=== PATIENT | female | born 1985 | race Hispanic/Latino ===

== ENCOUNTER 2021-11-05 13:00 | Inpatient (IN) | payer MEDICAID ==
[~2021-11-05] VITALS: Ht 157.5 cm; Wt 98.4 kg
[2021-11-05] MEDS: LACTATED RINGERS 1000ML 1,000 ML IV PRN ×3 (13:36→16:14)
[2021-11-05 14:12] LABS: APPEARANCE,URINE Clear (CLEAR); BILIRUBIN,URINE Negative (NEGATIVE); COLOR,URINE Yellow (YELLOW); GLUCOSE, URINE (UA) Negative (NEGATIVE); KETONES,URINE Trace mg/dL (NEGATIVE); LEUKOCYTE ESTERASE ,URINE Negative (NEGATIVE); NITRATE,URINE Negative (NEGATIVE); OCCULT BLOOD,URINE Negative (NEGATIVE); PROTEIN,URINE POS 1+ mg/dL (NEGATIVE)
[2021-11-05 14:23] LABS: BACTERIA,URINE Few /HPF (None Seen); MUCUS,URINE Few LPF (None Seen); RBC,URINE 0-1 /HPF (0-1); SQUAMOUS EPITHELIAL CELL,UR Few /HPF (0-2); WBC,URINE 0-1 /HPF (0-1)
[2021-11-05 14:52] LABS: HEMATOCRIT 33.5 % (36-48); MEAN CORPUSCULAR HEMOGLOBIN 25.7 pg (27.0-33.0); MEAN CORPUSCULAR HGB CONC 31.6 g/dL (32.0-36.0); MEAN CORPUSCULAR VOLUME 81.3 fL (79-99); RED BLOOD CELL COUNT(AUTO) 4.12 MIL/uL (4.00-5.50); WHITE BLOOD COUNT (AUTO) 9.8 K/uL (4.8-10.8)
[2021-11-05] MEDS ORDERED: NALOXONE HCL 0.4 MG/1 ML ML IV PRN (15:00)
[2021-11-05] MEDS ORDERED: LACTATED RINGERS 500 ML 500 ML IV PRN (15:00)
[2021-11-05] MEDS ORDERED: EPHEDRINE SULFATE 50 MG/ML AMPULE IVP PRN (15:00)
[2021-11-05] MEDS ORDERED: MEPERIDINE-PF 50 MG/ML SYG IVP PRN (15:00)
[2021-11-05] MEDS ORDERED: PROMETHAZINE HCL 25 MG/ML 1ML AMPULE IM PRN (15:00)
[2021-11-05] MEDS ORDERED: DINOPROSTONE 10 MG VAGINAL SUPP VG SCH (20:00)
[2021-11-06] MEDS: LACTATED RINGERS 1000ML 1,000 ML IV PRN ×2 (02:10→10:00)
[2021-11-06] MEDS ORDERED: OXYTOCIN-LR 20 UNITS/1000 ML 1,000 ML IV SCH ×3 (05:00→13:00)
[2021-11-06] MEDS ORDERED: ROPIVACAINE 0.2% 100ML VIAL 100 ML EP SCH (07:30)
[2021-11-06] MEDS ORDERED: LACTATED RINGERS 500 ML 500 ML IV PRN (07:30)
[2021-11-06] MEDS ORDERED: NALOXONE HCL 0.4 MG/1 ML ML IV PRN (07:30)
[2021-11-06] MEDS ORDERED: EPHEDRINE SULFATE 50 MG/ML AMPULE IVP PRN (07:30)
[2021-11-06 08:36] LABS: RAPID PLASMA REAGIN NONREACTIVE (NONREACTIVE)
[2021-11-06] MEDS ORDERED: METHYLERGONOVINE MALEATE 0.2 MG/1 ML ML ONE (12:01)
[2021-11-06] MEDS ORDERED: WITCH HAZEL 1 PAD TP PRN (13:00)
[2021-11-06] MEDS ORDERED: ACETAMINOPHEN WITH CODEINE 1 TAB TAB PO PRN (13:00)
[2021-11-06] MEDS ORDERED: BENZOCAINE/LANOLIN/ALOE VERA 60 ML AEROSOL TP PRN (13:00)
[2021-11-06] MEDS ORDERED: MEASLES/MUMPS/RUBELLA VACCINE, LIVE 0.5 ML/VIAL SQ PRN (13:00)
[2021-11-06] MEDS ORDERED: LANOLIN 30GM OINTMENT TP PRN (13:00)
[2021-11-06] MEDS ORDERED: ACETAMINOPHEN 325 MG TAB PO PRN (13:00)
[2021-11-06] MEDS ORDERED: DIPH,PERTUSS(ACELL),TET VAC/PF 0.5 ML VIAL IM PRN (13:00)
[2021-11-06 15:29] VITALS: BP 128/55
[2021-11-06] MEDS: IBUPROFEN 600 MG TABLET PO PRN ×2 (15:57→22:23)
[2021-11-06] MEDS ORDERED: PNV1TABL17 PO (17:12)
[2021-11-06 19:50] VITALS: BP 127/59
[2021-11-06] MEDS: DOCUSATE SODIUM 100 MG CAP PO SCH (20:28)
[2021-11-06 23:23] VITALS: BP 115/64
[2021-11-07 03:12] VITALS: BP 107/65
[2021-11-07 06:16] LABS: HEMATOCRIT 27.6 % (36-48); MEAN CORPUSCULAR HEMOGLOBIN 25.7 pg (27.0-33.0); MEAN CORPUSCULAR HGB CONC 31.5 g/dL (32.0-36.0); MEAN CORPUSCULAR VOLUME 81.4 fL (79-99); RED BLOOD CELL COUNT(AUTO) 3.39 MIL/uL (4.00-5.50); RED CELL DISTRIBUTION WIDTH 14.2 % (11.0-15.5); WHITE BLOOD COUNT (AUTO) 9.3 K/uL (4.8-10.8)
[2021-11-07 07:30] VITALS: BP 115/72
[2021-11-07] MEDS: DOCUSATE SODIUM 100 MG CAP PO SCH (08:50)
[2021-11-07] MEDS: IBUPROFEN 600 MG TABLET PO PRN (08:51)
[2021-11-07 11:46] VITALS: BP 120/76
[2021-11-07] MEDS ORDERED: IBUP-2071 PO (11:53)
[2021-11-07] MEDS ORDERED: DOCU-116 PO (11:53)
== END 2021-11-07 15:05 | disposition home or self-care (01) | DRG 560 ==
LOC: EDH 13:00 → LDH 13:01 → OBSVTOIN 13:01 → WSH 11-06 15:08
PROVIDERS: ADMIT Obstetrics & Gynecology; ATTEND Obstetrics & Gynecology
PROC: 10E0XZZ Delivery of Products of Conception, External Approach (ICD-10-PCS; principal; 2021-11-06)
PROC: 0HQ9XZZ Repair Perineum Skin, External Approach (ICD-10-PCS; 2021-11-06)
PROC: 10907ZC Drainage of Amniotic Fluid, Therapeutic from Products of Conception, Via Natural or Artificial Opening (ICD-10-PCS; 2021-11-06)
PROC: 3E0R3BZ Introduction of Anesthetic Agent into Spinal Canal, Percutaneous Approach (ICD-10-PCS; 2021-11-06)
PROC: 00HU33Z Insertion of Infusion Device into Spinal Canal, Percutaneous Approach (ICD-10-PCS; 2021-11-06)
DX: O69.81X0 Labor and delivery complicated by cord around neck, without compression, not applicable or unspecified (principal); Z37.0 Single live birth; O70.0 First degree perineal laceration during delivery; O99.214 Obesity complicating childbirth; Z3A.37 37 weeks gestation of pregnancy
CPT/HCPCS: 36415; 81001; 85027; 86592; 86701; 86850; 86900; 86901; 87340; 87390; A4314; G0378; J2175; J2210; J2550; J2590; J2795; J7120

== ENCOUNTER 2023-03-31 03:46 | Inpatient (IN) | payer MEDICAID ==
[~2023-03-31] VITALS: Ht 154.9 cm; Wt 93.0 kg
[~2023-03-31 03:46] MED LIST: DOCU-116 PO; IBUP-2071 PO; PNV1TABL17 PO
[2023-03-31 04:25] LABS: APPEARANCE,URINE CLEAR (CLEAR); BILIRUBIN,URINE NEGATIVE (NEGATIVE); COLOR,URINE LIGHT-YELLOW (YELLOW); GLUCOSE, URINE (UA) NEGATIVE (NEGATIVE); KETONES,URINE NEGATIVE (NEGATIVE); LEUKOCYTE ESTERASE ,URINE NEGATIVE Leu/uL (NEGATIVE); NITRATE,URINE NEGATIVE (NEGATIVE); OCCULT BLOOD,URINE LARGE (NEGATIVE); PH,URINE 6.5 (5.0-8.0); PROTEIN,URINE 20 mg/dL (NEGATIVE); UROBILINOGEN,URINE 0.2 mg/dL (0.2-1.0)
[2023-03-31 04:27] LABS: ADD UA MICROSCOPIC YES
[2023-03-31 04:28] LABS: RBC,URINE 26-50 /HPF (0-1); SQUAMOUS EPITHELIAL CELL,UR RARE /HPF (0-2); WBC,URINE 0-1 /HPF (0-1)
[2023-03-31] MEDS ORDERED: MEPERIDINE-PF 50 MG/ML SYG IVP PRN (05:00)
[2023-03-31] MEDS ORDERED: ROPIVACAINE 0.2% 100ML VIAL 100 ML EP SCH (05:00)
[2023-03-31] MEDS ORDERED: PROMETHAZINE HCL 25 MG/ML 1ML AMPULE IM PRN (05:00)
[2023-03-31] MEDS ORDERED: EPHEDRINE SULFATE 50 MG/ML AMPULE IVP PRN (05:00)
[2023-03-31] MEDS ORDERED: LACTATED RINGERS 500 ML 500 ML IV PRN (05:00)
[2023-03-31] MEDS ORDERED: OXYTOCIN-LR 30 UNITS/500ML 500 ML IV SCH ×3 (05:00→07:00)
[2023-03-31] MEDS ORDERED: LACTATED RINGERS 1000ML 1,000 ML IV PRN (05:00)
[2023-03-31] MEDS ORDERED: NALOXONE HCL 0.4 MG/1 ML ML IV PRN (05:00)
[2023-03-31 05:02] LABS: AMPHET/METH SCREEN,URINE NEGATIVE (NEGATIVE); BARBITURATE SCREEN, URINE NEGATIVE (NEGATIVE); BENZODIAZEPINES SCREEN,URINE NEGATIVE (NEGATIVE); CANNABINOID SCREEN,URINE NEGATIVE (NEGATIVE); COCAINE SCREEN,URINE NEGATIVE (NEGATIVE); OPIATE SCREEN,URINE NEGATIVE (NEGATIVE); PHENCYCLIDINE SCREEN,URINE NEGATIVE (NEGATIVE)
[2023-03-31 05:04] LABS: MEAN CORPUSCULAR HEMOGLOBIN 23.8 pg (27.0-33.0); MEAN CORPUSCULAR HGB CONC 30.6 g/dL (32.0-36.0); MEAN CORPUSCULAR VOLUME 77.9 fL (79-99); PLATELET COUNT (AUTO) 416 K/uL (130-400); RED BLOOD CELL COUNT(AUTO) 4.11 MIL/uL (4.00-5.50); RED CELL DISTRIBUTION WIDTH 15.2 % (11.0-15.5)
[2023-03-31] MEDS ORDERED: LIDOCAINE HCL 400MG/20ML VIAL ONE (05:20)
[2023-03-31] MEDS ORDERED: LANOLIN 30GM OINTMENT TP PRN (06:00)
[2023-03-31] MEDS ORDERED: WITCH HAZEL 1 PAD TP PRN (06:00)
[2023-03-31] MEDS ORDERED: MEASLES/MUMPS/RUBELLA VACCINE, LIVE 0.5 ML/VIAL SQ PRN (06:00)
[2023-03-31] MEDS ORDERED: ACETAMINOPHEN WITH CODEINE 1 TAB TAB PO PRN (06:00)
[2023-03-31] MEDS ORDERED: DIPH,PERTUSS(ACELL),TET VAC/PF 0.5 ML VIAL IM PRN (06:00)
[2023-03-31] MEDS ORDERED: BENZOCAINE/LANOLIN/ALOE VERA 60 ML AEROSOL TP PRN (06:00)
[2023-03-31] MEDS ORDERED: ACETAMINOPHEN 325 MG TAB PO PRN (06:00)
[2023-03-31] MEDS: IBUPROFEN 600 MG TABLET PO PRN ×2 (07:30→20:25)
[2023-03-31 07:41] VITALS: BP 132/70; PULSE 61; RESP 16
[2023-03-31] MEDS: DOCUSATE SODIUM 100 MG CAP PO SCH ×2 (08:06→20:24)
[2023-03-31 11:38] VITALS: BP 114/71; PULSE 63; RESP 16
[2023-03-31 16:05] VITALS: BP 112/74; PULSE 73; RESP 16
[2023-03-31 19:57] VITALS: BP 125/74; PULSE 62; RESP 18
[2023-03-31 23:39] VITALS: BP 93/67; PULSE 66; RESP 18
[2023-04-01] MEDS: IBUPROFEN 600 MG TABLET PO PRN (02:14)
[2023-04-01 04:18] VITALS: BP 119/79; PULSE 54; RESP 18
[2023-04-01 06:35] LABS: HEMATOCRIT 27.4 % (36-48); MEAN CORPUSCULAR HGB CONC 30.3 g/dL (32.0-36.0); MEAN CORPUSCULAR VOLUME 79.2 fL (79-99); RED BLOOD CELL COUNT(AUTO) 3.46 MIL/uL (4.00-5.50); RED CELL DISTRIBUTION WIDTH 15.4 % (11.0-15.5); WHITE BLOOD COUNT (AUTO) 9.8 K/uL (4.8-10.8)
[2023-04-01 07:18] LABS: HEPATITIS Bs ANTIGEN SCREEN P Negative (Negative)
[2023-04-01 07:41] VITALS: BP 118/71; PULSE 64; RESP 18
[2023-04-01] MEDS: DOCUSATE SODIUM 100 MG CAP PO SCH (08:14)
[2023-04-01 12:11] VITALS: BP 125/80; PULSE 74; RESP 18
[2023-04-01] MEDS ORDERED: IBUP-2071 PO (12:20)
== END 2023-04-01 14:10 | disposition home or self-care (01) | DRG 560 ==
LOC: EDH 03:46 → OBSVTOIN 03:47 → LDH 03:47 → WSH 07:30
PROVIDERS: ADMIT Obstetrics & Gynecology; ATTEND Obstetrics & Gynecology
PROC: 10E0XZZ Delivery of Products of Conception, External Approach (ICD-10-PCS; principal; 2023-03-31)
PROC: 0KQM0ZZ Repair Perineum Muscle, Open Approach (ICD-10-PCS; 2023-03-31)
DX: O62.3 Precipitate labor (principal); Z37.0 Single live birth; O60.14X0 Preterm labor third trimester with preterm delivery third trimester, not applicable or unspecified; O71.4 Obstetric high vaginal laceration alone; O99.02 Anemia complicating childbirth; Z3A.36 36 weeks gestation of pregnancy
CPT/HCPCS: 36415; 80305; 81001; 85027; 86592; 86850; 86900; 86901; 87340; 90715; G0378; J3490